=== PATIENT | female | born 1965 | race Caucasian/White ===

== ENCOUNTER 2017-06-16 10:13 | Emergency (ER) | payer BC ==
[2017-06-16] MEDS ORDERED: Ketorolac Tromethamine 60 MG/2 ML VIAL ONE (10:47)
[2017-06-16] MEDS ORDERED: Cyclobenzaprine 10 MG TAB ONE (10:47)
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
== END 2017-06-16 12:24 | disposition home or self-care (01) ==
LOC: ERS 10:13
DX: S80.811A Abrasion, right lower leg, initial encounter (principal); S80.812A Abrasion, left lower leg, initial encounter; S00.31XA Abrasion of nose, initial encounter; M79.642 Pain in left hand; V89.2XXA Person injured in unspecified motor-vehicle accident, traffic, initial encounter
CPT/HCPCS: 94760; 96372; J1885